=== PATIENT | female | born 1970 | race Caucasian/White ===

== ENCOUNTER 2019-01-07 17:14 | Inpatient (IN) | payer MEDICARE, MEDICAID ==
[~2019-01-07] VITALS: Ht 157.5 cm; Wt 70.3 kg
[~2019-01-07 17:14] MED LIST: ESCI10TA PO; QUET100T PO
[2019-01-07] MEDS ORDERED: METF-960 PO (17:25)
[2019-01-07] MEDS ORDERED: HALOPERIDOL 5 MG TABLET PO PRN (17:45)
[2019-01-07] MEDS ORDERED: ZOLPIDEM TARTRATE 10 MG TABLET PO PRN (17:45)
[2019-01-07] MEDS ORDERED: PNEUMOCOCCAL VACCINE POLYVALENT 0.5 ML VIAL [PPSV23] IM ONE (18:15)
[2019-01-07] MEDS ORDERED: INFLUENZA VIRUS VACCINE QVS 2019-20 (3YR+)/PF 60 MCG/0.5 ML SYRINGE IM ONE (18:15)
[2019-01-07] MEDS: LORazepam 2 MG TABLET PO PRN (19:32)
[2019-01-07 19:54] VITALS: BP 135/77
[2019-01-07] MEDS ORDERED: GLUCAGON,HUMAN RECOMBINANT 1 MG VIAL IM PRN (20:30)
[2019-01-07] MEDS ORDERED: INSULIN LISPRO 100 UNITS/ML SQ PRN (20:30)
[2019-01-07] MEDS ORDERED: HYPROMELLOSE 0.5% 15 ML OPHTHALMIC SOLUTION OU PRN (20:45)
[2019-01-07] MEDS ORDERED: BENZOCAINE/MENTHOL LOZENGE PO PRN (20:45)
[2019-01-07 21:00] LABS: GLUCOMETER DEV NAME(LOC) BV3S.; GLUCOSE,POINT OF CARE 114 MG/DL (70-110)
[2019-01-08 02:50] VITALS: BP 127/68
[2019-01-08 06:21] LABS: GLUCOMETER DEV NAME(LOC) BV3S.; GLUCOSE,POINT OF CARE 91 MG/DL (70-110)
[2019-01-08] MEDS: MetFORMIN HCL 500 MG TABLET PO SCH ×2 (07:18→17:14)
[2019-01-08 08:01] LABS: HEMOGLOBIN A1C 5.7 % (4.5-6.2)
[2019-01-08 08:09] LABS: BASOPHILS % (AUTO) 0.5 % (0.0-2.0); EOSINOPHILS % (AUTO) 3.7 % (1.0-6.0); HEMATOCRIT 34.8 % (36-46); HEMOGLOBIN 11.4 g/dL (12.0-16.0); LYMPHOCYTES # (AUTO) 2.6 K/uL (1.0-4.8); LYMPHOCYTES % (AUTO) 29.3 % (22.0-44.0); MEAN CORPUSCULAR HEMOGLOBIN 25.4 pg (26.0-34.0); MEAN CORPUSCULAR HGB CONC 32.7 G/dL (31.0-37.0); MEAN CORPUSCULAR VOLUME 78 fL (80-100); MONOCYTES # (AUTO) 0.9 K/uL (0.1-1.0); MONOCYTES % (AUTO) 9.6 % (2.0-9.0); NEUTROPHILS # (AUTO) 5.1 K/uL (1.8-7.7); NEUTROPHILS % (AUTO) 56.9 % (40.0-70.0); PLATELET COUNT (AUTO) 211 K/uL (150-450); RED BLOOD CELL COUNT(AUTO) 4.47 MIL/uL (4.00-5.20); RED CELL DISTRIBUTION WIDTH 16.7 % (11.5-14.5)
[2019-01-08 08:13] LABS: ALANINE AMINOTRANSFERASE 25 U/L (12-78); ALBUMIN 3.3 g/dL (3.4-5.0); ALKALINE PHOSPHATASE 61 U/L (46-116); ANION GAP 6 mmol/L (8-16); ASPARTATE AMINOTRANSFERASE 22 U/L (15-37); BILIRUBIN,TOTAL 0.2 mg/dL (0.1-1.0); CALCIUM, TOTAL 9.3 mg/dL (8.8-10.5); CARBON DIOXIDE 27 mmol/L (22-29); CHLORIDE 105 mmol/L (98-107); CHOL/HDL RATIO 1.9 (3.9-5.7); CHOLESTEROL 102 mg/dL (131-200); CREATININE 0.84 mg/dL (0.60-1.30); FREE T4 (FREE THYROXINE) 1.21 ng/dL (0.76-1.46); GLOMERULAR FILTR. RATE CALC > 60 mL/min (>60); GLUCOSE,RANDOM 92 mg/dL (70-110); HDL CHOLESTEROL 54 mg/dL (40-60); LDL CHOL (CALC.) 37 mg/dL (0-130); POTASSIUM 3.6 mmol/L (3.5-5.1); SODIUM SERUM 138 mmol/L (136-145); THYROID STIMULATING HORMONE 1.24 uIU/mL (0.36-3.74); TRIGLYCERIDES 56 mg/dL (15-150); UREA NITROGEN, BLOOD 10 mg/dL (7-18)
[2019-01-08] MEDS: LISINOPRIL 10 MG TABLET PO SCH (08:19)
[2019-01-08] MEDS: DILTIAZEM HCL CD 120 MG ER CAPSULE PO SCH (08:19)
[2019-01-08 08:20] VITALS: BP 109/71
[2019-01-08 16:05] VITALS: BP 160/80
[2019-01-08] MEDS: LORazepam 2 MG TABLET PO PRN (16:16)
[2019-01-08 19:21] LABS: GLUCOMETER DEV NAME(LOC) BV3S.; GLUCOSE,POINT OF CARE 97 MG/DL (70-110)
[2019-01-08 19:35] VITALS: BP 163/92
[2019-01-08] MEDS: CloNIDine HCL 0.1 MG TABLET PO PRN (19:36)
[2019-01-08] MEDS: RisperiDONE 2 MG TABLET PO SCH (20:19)
[2019-01-08 20:36] VITALS: BP 115/75
[2019-01-08 20:51] LABS: GLUCOMETER DEV NAME(LOC) BV3S.; GLUCOSE,POINT OF CARE 92 MG/DL (70-110)
[2019-01-09 04:26] VITALS: BP 133/81
[2019-01-09] MEDS: MetFORMIN HCL 500 MG TABLET PO SCH (06:45)
[2019-01-09 06:46] LABS: GLUCOMETER DEV NAME(LOC) BV3S.; GLUCOSE,POINT OF CARE 97 MG/DL (70-110)
[2019-01-09] MEDS ORDERED: MetFORMIN HCL 500 MG TABLET PO SCH (07:00)
[2019-01-09 08:09] VITALS: BP 164/110
[2019-01-09] MEDS: LISINOPRIL 10 MG TABLET PO SCH (08:32)
[2019-01-09] MEDS: DILTIAZEM HCL CD 120 MG ER CAPSULE PO SCH (08:32)
[2019-01-09] MEDS ORDERED: CloNIDine HCL 0.1 MG TABLET PO PRN (08:45)
[2019-01-09] MEDS: CloNIDine HCL 0.1 MG TABLET PO PRN (08:46)
[2019-01-09] MEDS: ESCITALOPRAM OXALATE 10 MG TABLET PO SCH (09:46)
[2019-01-09] MEDS: LORazepam 2 MG TABLET PO PRN (10:55)
[2019-01-09 11:11] LABS: GLUCOMETER DEV NAME(LOC) BV3S.; GLUCOSE,POINT OF CARE 125 MG/DL (70-110)
[2019-01-09 13:10] VITALS: BP 143/84
[2019-01-09 16:08] VITALS: BP 132/88
[2019-01-09 17:16] LABS: GLUCOMETER DEV NAME(LOC) BV3S.; GLUCOSE,POINT OF CARE 111 MG/DL (70-110)
[2019-01-09] MEDS: RisperiDONE 2 MG TABLET PO SCH (20:14)
[2019-01-09 21:05] LABS: GLUCOMETER DEV NAME(LOC) BV3S.; GLUCOSE,POINT OF CARE 91 MG/DL (70-110)
[2019-01-10 06:56] LABS: GLUCOMETER DEV NAME(LOC) BV3S.; GLUCOSE,POINT OF CARE 93 MG/DL (70-110)
[2019-01-10 07:00] VITALS: BP 162/100
[2019-01-10 08:24] VITALS: BP 149/92
[2019-01-10] MEDS: ESCITALOPRAM OXALATE 10 MG TABLET PO SCH (08:35)
[2019-01-10] MEDS: LISINOPRIL 10 MG TABLET PO SCH (08:38)
[2019-01-10] MEDS: DILTIAZEM HCL CD 120 MG ER CAPSULE PO SCH (08:38)
[2019-01-10] MEDS: LORazepam 2 MG TABLET PO PRN (08:50)
[2019-01-10] MEDS ORDERED: MetFORMIN HCL 500 MG TABLET PO SCH (09:00)
[2019-01-10 11:51] LABS: GLUCOMETER DEV NAME(LOC) BV3S.; GLUCOSE,POINT OF CARE 78 MG/DL (70-110)
[2019-01-10] MEDS ORDERED: RISP2 PO (14:55)
[2019-01-10] MEDS ORDERED: METF-960 PO (14:58)
[2019-01-10] MEDS ORDERED: LISI-662 PO (14:58)
[2019-01-10] MEDS ORDERED: DILT-39 PO (14:58)
[2019-01-10 16:07] VITALS: BP 136/88
[2019-01-10 16:46] LABS: GLUCOMETER DEV NAME(LOC) BV3S.; GLUCOSE,POINT OF CARE 92 MG/DL (70-110)
[2019-01-11] MEDS ORDERED: LISINOPRIL 20 MG TABLET PO SCH (09:00)
== END 2019-01-10 19:04 | disposition home or self-care (01) | DRG 885 ==
LOC: B3A 17:59
PROVIDERS: ADMIT Psychiatry & Neurology Child & Adolescent Psychiatry; ATTEND Psychiatry & Neurology Child & Adolescent Psychiatry
DX: F20.0 Paranoid schizophrenia (principal); D64.9 Anemia, unspecified; Z53.20 Procedure and treatment not carried out because of patient's decision for unspecified reasons; Z88.6 Allergy status to analgesic agent; Z91.018 Allergy to other foods; E11.9 Type 2 diabetes mellitus without complications; I10 Essential (primary) hypertension; K21.9 Gastro-esophageal reflux disease without esophagitis; Z82.49 Family history of ischemic heart disease and other diseases of the circulatory system
CPT/HCPCS: 80074; 83036; 84439; 84443; 90686; 90732

== ENCOUNTER 2019-01-19 07:43 | Inpatient (IN) | payer MEDICARE, MEDICAID ==
[~2019-01-19] VITALS: Ht 157.5 cm; Wt 69.0 kg
[~2019-01-19 07:43] MED LIST changes: +DILT-39 PO; +LISI-662 PO; +METF-960 PO; -QUET100T PO; +RISP2 PO
[2019-01-19 08:25] LABS: BASOPHILS % (AUTO) 0.6 % (0.0-2.0); HEMOGLOBIN 11.1 g/dL (12.0-16.0); LYMPHOCYTES # (AUTO) 2.4 K/uL (1.0-4.8); MEAN CORPUSCULAR HGB CONC 31.7 G/dL (31.0-37.0); MEAN CORPUSCULAR VOLUME 79 fL (80-100); MONOCYTES # (AUTO) 0.9 K/uL (0.1-1.0); MONOCYTES % (AUTO) 11.1 % (2.0-9.0); NEUTROPHILS # (AUTO) 4.1 K/uL (1.8-7.7); NEUTROPHILS % (AUTO) 53.3 % (40.0-70.0); PLATELET COUNT (AUTO) 424 K/uL (150-450); RED BLOOD CELL COUNT(AUTO) 4.44 MIL/uL (4.00-5.20); RED CELL DISTRIBUTION WIDTH 16.5 % (11.5-14.5)
[2019-01-19 08:31] LABS: ANION GAP 9 mmol/L (8-16); CALCIUM, TOTAL 9.1 mg/dL (8.8-10.5); CARBON DIOXIDE 25 mmol/L (22-29); CHLORIDE 103 mmol/L (98-107); CREATININE 0.81 mg/dL (0.60-1.30); GLOMERULAR FILTR. RATE CALC > 60 mL/min (>60); GLUCOSE,RANDOM 116 mg/dL (70-110); POTASSIUM 3.6 mmol/L (3.5-5.1); SODIUM SERUM 137 mmol/L (136-145); UREA NITROGEN, BLOOD 10 mg/dL (7-18)
[2019-01-19 08:37] LABS: ALANINE AMINOTRANSFERASE 26 U/L (12-78); ALBUMIN 3.5 g/dL (3.4-5.0); ALKALINE PHOSPHATASE 67 U/L (46-116); ASPARTATE AMINOTRANSFERASE 23 U/L (15-37); BILIRUBIN,TOTAL 0.4 mg/dL (0.1-1.0); TOTAL PROTEIN, SERUM 7.4 g/dL (6.4-8.2)
[2019-01-19 09:01] LABS: APPEARANCE,URINE CLOUDY (CLEAR); BILIRUBIN,URINE NEGATIVE (NEGATIVE); GLUCOSE, URINE (UA) NEGATIVE (NEGATIVE); KETONES,URINE NEGATIVE (NEGATIVE); LEUKOCYTE ESTERASE ,URINE NEGATIVE (NEGATIVE); NITRATE,URINE NEGATIVE (NEGATIVE); OCCULT BLOOD,URINE NEGATIVE (NEGATIVE); PH,URINE 5.5 (5.0-8.0); PROTEIN,URINE NEGATIVE (NEGATIVE); UROBILINOGEN,URINE 0.2 mg/dL (<=1.0)
[2019-01-19 09:05] LABS: AMPHET/METH SCREEN,URINE NEGATIVE (NEGATIVE); BARBITURATE SCREEN, URINE NEGATIVE (NEGATIVE); BENZODIAZEPINES SCREEN,URINE NEGATIVE (NEGATIVE); CANNABINOID SCREEN,URINE NEGATIVE (NEGATIVE); COCAINE SCREEN,URINE NEGATIVE (NEGATIVE); METHADONE SCREEN, URINE NEGATIVE (NEGATIVE); OPIATE SCREEN,URINE NEGATIVE (NEGATIVE); PHENCYCLIDINE SCREEN,URINE NEGATIVE (NEGATIVE)
[2019-01-19] MEDS ORDERED: LORazepam 2 MG TABLET PO ONE (09:15)
[2019-01-19] MEDS ORDERED: RisperiDONE 1 MG TABLET PO ONE (09:45)
[2019-01-19 09:47] LABS: BACTERIA,URINE Few /HPF (None Seen); RBC,URINE None Seen /HPF (0-2); SQUAMOUS EPITHELIAL CELL,UR Many /LPF (None Seen); WBC,URINE 0-2 /HPF (0-5)
[2019-01-19 16:30] LABS: GLUCOSE,POINT OF CARE 77 MG/DL (70-110)
[2019-01-19 17:15] VITALS: BP 140/81
[2019-01-19] MEDS ORDERED: GLUCAGON,HUMAN RECOMBINANT 1 MG VIAL IM PRN (18:15)
[2019-01-19] MEDS ORDERED: INSULIN LISPRO 100 UNITS/ML SQ PRN (18:15)
[2019-01-19] MEDS: MetFORMIN HCL 500 MG TABLET PO SCH (18:32)
[2019-01-19] MEDS: ZOLPIDEM TARTRATE 10 MG TABLET PO PRN (20:09)
[2019-01-20 03:13] VITALS: BP 135/86
[2019-01-20] MEDS ORDERED: INFLUENZA VIRUS VACCINE QVS 2019-20 (3YR+)/PF 60 MCG/0.5 ML SYRINGE IM ONE (04:30)
[2019-01-20] MEDS: HALOPERIDOL 5 MG TABLET PO PRN (04:36)
[2019-01-20] MEDS ORDERED: PNEUMOCOCCAL VACCINE POLYVALENT 0.5 ML VIAL [PPSV23] IM ONE (04:45)
[2019-01-20 06:26] LABS: GLUCOMETER DEV NAME(LOC) BV3S.; GLUCOSE,POINT OF CARE 94 MG/DL (70-110)
[2019-01-20] MEDS: MetFORMIN HCL 500 MG TABLET PO SCH (07:00)
[2019-01-20 08:37] VITALS: BP 135/84
[2019-01-20] MEDS: LORazepam 2 MG TABLET PO PRN ×2 (08:49→20:27)
[2019-01-20] MEDS: LISINOPRIL 10 MG TABLET PO SCH (08:49)
[2019-01-20] MEDS: ESCITALOPRAM OXALATE 10 MG TABLET PO SCH (09:30)
[2019-01-20] MEDS: RisperiDONE 2 MG TABLET PO SCH (09:59)
[2019-01-20 11:11] LABS: GLUCOMETER DEV NAME(LOC) BV3S.; GLUCOSE,POINT OF CARE 97 MG/DL (70-110)
[2019-01-20 16:14] VITALS: BP 130/87
[2019-01-20 16:41] LABS: GLUCOMETER DEV NAME(LOC) BV3S.; GLUCOSE,POINT OF CARE 133 MG/DL (70-110)
[2019-01-20 20:20] LABS: GLUCOMETER DEV NAME(LOC) BV3S.; GLUCOSE,POINT OF CARE 100 MG/DL (70-110)
[2019-01-21] MEDS: ZOLPIDEM TARTRATE 10 MG TABLET PO PRN (01:24)
[2019-01-21] MEDS: LORazepam 2 MG TABLET PO PRN ×2 (01:24→17:06)
[2019-01-21 05:34] VITALS: BP 112/86
[2019-01-21 06:26] LABS: GLUCOMETER DEV NAME(LOC) BV3S.; GLUCOSE,POINT OF CARE 99 MG/DL (70-110)
[2019-01-21] MEDS: MetFORMIN HCL 500 MG TABLET PO SCH (07:00)
[2019-01-21 08:05] VITALS: BP 121/81
[2019-01-21 08:33] LABS: CHOL/HDL RATIO 2.7 (3.9-5.7)
[2019-01-21] MEDS: LISINOPRIL 10 MG TABLET PO SCH (09:42)
[2019-01-21] MEDS: RisperiDONE 2 MG TABLET PO SCH (09:42)
[2019-01-21] MEDS: ESCITALOPRAM OXALATE 10 MG TABLET PO SCH (09:42)
[2019-01-21 11:51] LABS: GLUCOMETER DEV NAME(LOC) BV3S.; GLUCOSE,POINT OF CARE 100 MG/DL (70-110)
[2019-01-21 14:10] VITALS: BP 141/91
[2019-01-21] MEDS ORDERED: CloNIDine HCL 0.1 MG TABLET PO PRN (14:15)
[2019-01-21] MEDS ORDERED: ACETAMINOPHEN 325 MG TABLET PO PRN (14:15)
[2019-01-21 14:26] VITALS: BP 140/96
[2019-01-21] MEDS: IBUPROFEN 600 MG TABLET PO PRN (14:27)
[2019-01-21 15:17] VITALS: BP 139/86
[2019-01-21 16:04] VITALS: BP 140/89
[2019-01-21 17:01] LABS: GLUCOMETER DEV NAME(LOC) BV3S.; GLUCOSE,POINT OF CARE 109 MG/DL (70-110)
[2019-01-21] MEDS: HALOPERIDOL 5 MG TABLET PO PRN (17:06)
[2019-01-21 21:26] LABS: GLUCOMETER DEV NAME(LOC) BV3S.; GLUCOSE,POINT OF CARE 124 MG/DL (70-110)
[2019-01-22 06:16] LABS: GLUCOMETER DEV NAME(LOC) BV3S.; GLUCOSE,POINT OF CARE 105 MG/DL (70-110)
[2019-01-22 06:30] VITALS: BP 132/89
[2019-01-22] MEDS: IBUPROFEN 600 MG TABLET PO PRN (06:34)
[2019-01-22 08:25] VITALS: BP 121/73
[2019-01-22] MEDS: RisperiDONE 2 MG TABLET PO SCH (08:27)
[2019-01-22] MEDS: LISINOPRIL 10 MG TABLET PO SCH (08:27)
[2019-01-22] MEDS: LORazepam 2 MG TABLET PO PRN ×2 (08:27→16:30)
[2019-01-22] MEDS ORDERED: TUBERCULIN, PURIFIED PROTEIN DERIVATIVE 5 TU/0.1 ML SYRINGE ID ONE (10:45)
[2019-01-22 12:26] LABS: GLUCOMETER DEV NAME(LOC) BV3S.; GLUCOSE,POINT OF CARE 83 MG/DL (70-110)
[2019-01-22 16:08] VITALS: BP 139/89
[2019-01-22] MEDS: HALOPERIDOL 5 MG TABLET PO PRN (16:30)
[2019-01-22 17:11] LABS: GLUCOMETER DEV NAME(LOC) BV3S.; GLUCOSE,POINT OF CARE 92 MG/DL (70-110)
[2019-01-22 21:41] LABS: GLUCOMETER DEV NAME(LOC) BV3S.; GLUCOSE,POINT OF CARE 95 MG/DL (70-110)
[2019-01-23 06:18] LABS: GLUCOMETER DEV NAME(LOC) BV3S.; GLUCOSE,POINT OF CARE 107 MG/DL (70-110)
[2019-01-23 06:55] VITALS: BP 127/84
[2019-01-23 08:18] VITALS: BP 148/92
[2019-01-23] MEDS: LISINOPRIL 10 MG TABLET PO SCH (08:31)
[2019-01-23] MEDS: RisperiDONE 2 MG TABLET PO SCH (08:31)
[2019-01-23] MEDS: LORazepam 2 MG TABLET PO PRN (08:32)
[2019-01-23 11:01] LABS: GLUCOMETER DEV NAME(LOC) BV3S.; GLUCOSE,POINT OF CARE 109 MG/DL (70-110)
[2019-01-23] MEDS ORDERED: RISP2 PO (11:26)
[2019-01-23 16:23] VITALS: BP 109/71
== END 2019-01-23 18:30 | disposition home or self-care (01) | DRG 885 ==
LOC: EMS 08:54 → B3A 17:04
PROVIDERS: ADMIT Psychiatry & Neurology Psychiatry; ATTEND Psychiatry & Neurology Child & Adolescent Psychiatry
DX: F20.0 Paranoid schizophrenia (principal); R45.851 Suicidal ideations; Z82.49 Family history of ischemic heart disease and other diseases of the circulatory system; I10 Essential (primary) hypertension; E11.9 Type 2 diabetes mellitus without complications; D64.9 Anemia, unspecified; Z91.19 Patient's noncompliance with other medical treatment and regimen; F41.9 Anxiety disorder, unspecified
CPT/HCPCS: 87081; G0480